=== PATIENT | female | born 1960 | race Caucasian/White ===

== ENCOUNTER 2020-03-29 15:04 | Inpatient (IN) | payer MEDICARE, OTHER ==
[~2020-03-29] VITALS: Ht 152.4 cm; Wt 87.1 kg
[2020-03-29 17:45] LABS: HEMOGLOBIN 11.9 gm/dl (12.3-15.3); RED BLOOD COUNT 4.06 M/UL (4.00-5.10)
[2020-03-29] MEDS ORDERED: OXYCODONE-ACET1 EACH PO (19:59)
[2020-03-29] MEDS ORDERED: PLAQUENIL 200200 MG PO (19:59)
[2020-03-29] MEDS ORDERED: COZAAR 50MG TAB50 MG PO (20:00)
[2020-03-29] MEDS ORDERED: LOPRESSOR 50 MG50 MG PO (20:01)
[2020-03-29] MEDS ORDERED: SERTRALINE HCL100 MG PO (20:02)
[2020-03-29] MEDS ORDERED: MELOXICAM7.5 MG PO (20:03)
[2020-03-29] MEDS ORDERED: FAMOTIDINE40 MG PO (20:03)
[2020-03-29] MEDS ORDERED: LEVOTHYROXINE150 MCG PO (20:03)
[2020-03-29] MEDS ORDERED: CALTRATE 600MG600 MG PO (20:05)
[2020-03-29] MEDS ORDERED: VITAMIN C500 M4 PO (20:07)
[2020-03-29] MEDS ORDERED: CYCLOBENZAPRINE10 MG PO (20:08)
[2020-03-30 03:38] LABS: HEMOGLOBIN 10.5 gm/dl (12.3-15.3)
[2020-03-30 03:44] LABS: RED BLOOD COUNT 3.62 M/UL (4.00-5.10); WHITE BLOOD COUNT 11.9 K/UL (4.5-11.0)
[2020-03-31 04:39] LABS: RED BLOOD COUNT 3.44 M/UL (4.00-5.10)
[2020-03-31 04:48] LABS: WHITE BLOOD COUNT 8.5 K/UL (4.5-11.0)
[2020-04-01 02:55] LABS: HEMOGLOBIN 9.9 gm/dl (12.3-15.3); RED BLOOD COUNT 3.52 M/UL (4.00-5.10); WHITE BLOOD COUNT 6.4 K/UL (4.5-11.0)
[2020-04-02 04:13] LABS: HEMOGLOBIN 10.6 gm/dl (12.3-15.3); RED BLOOD COUNT 3.69 M/UL (4.00-5.10); WHITE BLOOD COUNT 5.8 K/UL (4.5-11.0)
[2020-04-03] MEDS ORDERED: LOPRESSOR 25 MG25 MG PO (08:59)
[2020-04-03] MEDS ORDERED: SERTRALINE HCL50 MG PO (08:59)
[2020-04-03] MEDS ORDERED: CEFUROXIME500 MG PO (08:59)
== END 2020-04-03 15:22 | disposition home or self-care (01) | DRG 871 ==
LOC: ER1 15:04 → CDU 20:34 → MED SURG 4 20:34
PROVIDERS: Internal Medicine; Preventive Medicine Occupational Medicine; ADMIT Family Medicine
DX: A41.51 Sepsis due to Escherichia coli [E. coli] (principal); J18.9 Pneumonia, unspecified organism; J96.01 Acute respiratory failure with hypoxia; I21.A1 Myocardial infarction type 2; E87.2 Acidosis; N17.9 Acute kidney failure, unspecified; N39.0 Urinary tract infection, site not specified; Z20.822 Contact with and (suspected) exposure to COVID-19; E87.6 Hypokalemia; M79.7 Fibromyalgia; M19.90 Unspecified osteoarthritis, unspecified site; I10 Essential (primary) hypertension; R65.20 Severe sepsis without septic shock; E03.9 Hypothyroidism, unspecified; G89.29 Other chronic pain; Z79.899 Other long term (current) drug therapy; D72.829 Elevated white blood cell count, unspecified
CPT/HCPCS: ECHO; 0240U; 36415; 36600; 71045; 71046; 80053; 80061; 80202; 81001; 82550; 82553; 82803; 83605; 83690; 83874; 84484; 85025; 85027; 85610; 85652; 86140; 87040; 87077; 87086; 87186; 93005; 93306; 94640; 94760; 96365; 96366; 96367; 96368; 96372; 96375; 96376; 97162; 99285; J0456; J0696; J1100; J1644; J2405; J2543; J3370; J7030; J7070

== ENCOUNTER 2020-05-27 14:12 | Emergency (ER) | payer MEDICARE, OTHER ==
[~2020-05-27] VITALS: Ht 152.4 cm; Wt 87.1 kg
[~2020-05-27 14:12] MED LIST: CALTRATE 600MG600 MG PO; CEFUROXIME500 MG PO; COZAAR 50MG TAB50 MG PO; CYCLOBENZAPRINE10 MG PO; FAMOTIDINE40 MG PO; LEVOTHYROXINE150 MCG PO; LOPRESSOR 25 MG25 MG PO; LOPRESSOR 50 MG50 MG PO; MELOXICAM7.5 MG PO; OXYCODONE-ACET1 EACH PO; PLAQUENIL 200200 MG PO; SERTRALINE HCL100 MG PO; SERTRALINE HCL50 MG PO; VITAMIN C500 M4 PO
[2020-05-27 18:01] LABS: HEMOGLOBIN 12.8 gm/dl (12.3-15.3); RED BLOOD COUNT 4.43 M/UL (4.00-5.10); WHITE BLOOD COUNT 9.4 K/UL (4.5-11.0)
[2020-05-27 18:28] LABS: BUN/CREATININE RATIO 14 (0-10)
== END 2020-05-28 17:10 | disposition home or self-care (01) ==
LOC: ER1 14:12 → CDU 20:29 → ER1 20:29 → CDU 20:29
PROVIDERS: Physician Assistant
DX: R07.89 Other chest pain (principal); R06.09 Other forms of dyspnea; I10 Essential (primary) hypertension; E66.9 Obesity, unspecified; E03.9 Hypothyroidism, unspecified; M79.7 Fibromyalgia; D81.9 Combined immunodeficiency, unspecified; M19.90 Unspecified osteoarthritis, unspecified site; G89.29 Other chronic pain; R63.4 Abnormal weight loss; Z82.49 Family history of ischemic heart disease and other diseases of the circulatory system; Z79.899 Other long term (current) drug therapy; Z20.822 Contact with and (suspected) exposure to COVID-19
CPT/HCPCS: ECHO; 71045; 72040; 78452; 80053; 80061; 82550; 82553; 83036; 83735; 83874; 83880; 84100; 84439; 84443; 84484; 85025; 93005; 93017; 93306; 96372; 99285; A9502; G0378; J1650; J2785; U0002

== ENCOUNTER → 2020-07-02 | Outpatient (CLI) | payer MEDICARE, OTHER ==
[~2020-07-02] MED LIST changes: +ASPIRIN EC325 MG PO; +BACTRIM DS TAB1 EACH PO; +PHENERGAN 25 MG25 M1 PO; +ROXICODONE15 MG PO
[2020-07-02 10:35] LABS: HEMOGLOBIN 12.5 gm/dl (12.3-15.3); RED BLOOD COUNT 4.29 M/UL (4.00-5.10); WHITE BLOOD COUNT 5.2 K/UL (4.5-11.0)
== END ==
LOC: OPSV2 09:30 → EDSTATUS 09:30 → OPSV2 09:37
PROVIDERS: Orthopaedic Surgery
DX: Z01.812 Encounter for preprocedural laboratory examination (principal); Z01.810 Encounter for preprocedural cardiovascular examination; M17.11 Unilateral primary osteoarthritis, right knee
CPT/HCPCS: 36415; 80048; 81001; 85025; 87077; 87081; 87086; 87186; 93005

== ENCOUNTER → 2020-07-10 | Outpatient (CLI) | payer MEDICARE, OTHER | LOC: LAB 13:31 | PROVIDERS: Orthopaedic Surgery | DX: Z01.812 Encounter for preprocedural laboratory examination (principal); Z01.83 Encounter for blood typing | CPT/HCPCS: 36415; 80048; 86850; 86900; 86901 ==

== ENCOUNTER 2020-07-11 07:18 | Inpatient (IN) | payer MEDICARE, OTHER ==
[~2020-07-11] VITALS: Ht 152.4 cm; Wt 87.1 kg
[~2020-07-11 07:18] MED LIST changes: -ASPIRIN EC325 MG PO; -BACTRIM DS TAB1 EACH PO; -PHENERGAN 25 MG25 M1 PO; -ROXICODONE15 MG PO
[2020-07-11] MEDS ORDERED: BACTRIM DS TAB1 EACH PO (08:03)
[2020-07-11] MEDS ORDERED: ROXICODONE15 MG PO (09:42)
[2020-07-11] MEDS ORDERED: ASPIRIN EC325 MG PO (09:42)
[2020-07-11] MEDS ORDERED: PHENERGAN 25 MG25 M1 PO (14:25)
[2020-07-12 04:50] LABS: HEMOGLOBIN 10.4 gm/dl (12.3-15.3); RED BLOOD COUNT 3.57 M/UL (4.00-5.10); WHITE BLOOD COUNT 7.3 K/UL (4.5-11.0)
[2020-07-13 06:33] LABS: HEMOGLOBIN 10.3 gm/dl (12.3-15.3); RED BLOOD COUNT 3.57 M/UL (4.00-5.10); WHITE BLOOD COUNT 8.8 K/UL (4.5-11.0)
[2020-07-14 02:49] LABS: HEMOGLOBIN 10.3 gm/dl (12.3-15.3); RED BLOOD COUNT 3.56 M/UL (4.00-5.10); WHITE BLOOD COUNT 7.1 K/UL (4.5-11.0)
[2020-07-14] MEDS ORDERED: LOPRESSOR 25 MG25 MG PO (10:48)
[2020-07-15] MEDS ORDERED: COZAAR 50MG TAB50 MG PO (10:04)
== END 2020-07-15 12:10 | disposition home health service (06) | DRG 470 ==
LOC: OR 07:18 → EDSTATUS 09:30 → M/S 12:20 → OR 07-12 13:56 → M/S 07-12 13:56
PROVIDERS: ADMIT Orthopaedic Surgery
PROC: 0SRC0J9 Replacement of Right Knee Joint with Synthetic Substitute, Cemented, Open Approach (ICD-10-PCS; principal; 2020-07-11 09:30)
DX: M17.11 Unilateral primary osteoarthritis, right knee (principal); D84.9 Immunodeficiency, unspecified; N17.9 Acute kidney failure, unspecified; Z68.41 Body mass index [BMI] 40.0-44.9, adult; F11.20 Opioid dependence, uncomplicated; K21.9 Gastro-esophageal reflux disease without esophagitis; F32.9 Major depressive disorder, single episode, unspecified; Z20.822 Contact with and (suspected) exposure to COVID-19; M79.7 Fibromyalgia; G89.29 Other chronic pain; E03.9 Hypothyroidism, unspecified; I73.00 Raynaud's syndrome without gangrene; I12.9 Hypertensive chronic kidney disease with stage 1 through stage 4 chronic kidney disease, or unspecified chronic kidney disease; N18.30 Chronic kidney disease, stage 3 unspecified; Z96.651 Presence of right artificial knee joint; E66.01 Morbid (severe) obesity due to excess calories; I16.0 Hypertensive urgency; M50.30 Other cervical disc degeneration, unspecified cervical region; D63.1 Anemia in chronic kidney disease; M06.9 Rheumatoid arthritis, unspecified; E83.51 Hypocalcemia; D69.6 Thrombocytopenia, unspecified; J45.909 Unspecified asthma, uncomplicated; Z79.82 Long term (current) use of aspirin; Z90.710 Acquired absence of both cervix and uterus; Z98.41 Cataract extraction status, right eye; Z98.51 Tubal ligation status; Z68.39 Body mass index [BMI] 39.0-39.9, adult; Z82.49 Family history of ischemic heart disease and other diseases of the circulatory system
CPT/HCPCS: 36415; 73560; 80048; 82550; 82553; 84484; 85027; 86850; 86900; 86901; 93005; 97110-GP-CQ; 97116-GP-CQ; 97161; 97166; 97530-GP-CQ; 97535; C1776; J0171; J0360; J0690; J1100; J1885; J2270; J2704; J2795; J3370; J7030; J7120; Q0177